=== PATIENT | male | born 1955 | race Caucasian/White ===

== ENCOUNTER 2020-02-16 01:34 | Inpatient (IN) | payer MEDICAID, OTHER ==
[~2020-02-16] VITALS: Ht 167.6 cm; Wt 98.9 kg
[2020-02-16] MEDS ORDERED: SODIUM CHLORIDE 0.9% 2,000 ML IV ONE (02:12)
[2020-02-16] MEDS ORDERED: MORPHINE SULFATE 4 MG/ML SYR/VIAL IV ONE (02:15)
[2020-02-16] MEDS ORDERED: ONDANSETRON HCL 4 MG/2 ML VIAL IV ONE (02:15)
[2020-02-16 02:42] LABS: Platelet Count (auto) 311 10^3/uL (140-450)
[2020-02-16 02:44] LABS: Hematocrit 52.4 % (41.0-53.0); Hemoglobin 17.6 g/dL (13.5-17.5); Mean Corpuscular Hemoglobin 30.6 pg (28.0-32.0); Mean Corpuscular Hgb Conc. 33.7 g/dL (32.0-36.0); Mean Corpuscular Volume 90.9 fL (80.0-100.0); Red Blood Cells 5.77 10^6/uL (4.5-5.90); Red Cell Distribution Width 13.5 % (11.8-14.3)
[2020-02-16 02:47] LABS: White Blood Cell 31.4 10^3/uL (4.4-10.8)
[2020-02-16 02:49] LABS: Basophils % (manual) 0 (0.0-2.0); Blast Cells 0; Eosinophils % (manual) 0 (0-7); Metamyelocytes % 0; Myelocytes % 0; Promyelocytes % 0; Reactive Lymphocytes 0
[2020-02-16 02:50] LABS: INR 1.07 (0.9-1.15); Partial Thromboplastin Time 25.2 sec (23.64-32.05)
[2020-02-16 03:02] LABS: Alanine Aminotransferase 68 U/L (16-61); Albumin 3.9 g/dL (3.4-5.0); Anion Gap 14 (5-15); Aspartate Aminotransferase 87 U/L (15-37); BUN/Creatinine Ratio 12.3; Blood Urea Nitrogen 16 mg/dL (7-18); Calcium 9.3 mg/dL (8.5-10.1); Carbon Dioxide 20 mmol/L (21-32); Chloride 102 mmol/L (98-107); GFR African American 71 mL/min; GFR Non-African American 59 mL/min; Glucose 211 mg/dL (74-106); Potassium 3.1 mmol/L (3.5-5.1); Sodium 136 mmol/L (136-145)
[2020-02-16 03:07] LABS: Alkaline Phosphatase 90 U/L (45-117); Bilirubin, Total 1.6 mg/dL (0.2-1.0); Total Protein 7.7 g/dL (6.4-8.2)
[2020-02-16 03:20] LABS: Band Neutrophils % (manual) 4; Lymphocytes % (manual) 8 (10.0-50.0); Monocytes % (manual) 6 (0-12)
[2020-02-16 03:30] LABS: Amylase 4122 U/L (25-115)
[2020-02-16] MEDS ORDERED: POTASSIUM CHL 20MEQ/100ML 100 ML IV ONE (04:00)
[2020-02-16] MEDS ORDERED: CEFTRIAXONE SODIUM 2 GM in D5W 5% 50 ML IV ONE (04:00)
[2020-02-16] MEDS ORDERED: SODIUM CHLORIDE 0.9% 1,000 ML IV ONE (04:00)
[2020-02-16] MEDS ORDERED: HYDROmorphone HCL 2 MG/ML VL IV ONE ×2 (04:00→13:45)
[2020-02-16] MEDS ORDERED: methylPREDNISolone SOD SUCC 125 MG/2 ML VL IV ONE (04:00)
[2020-02-16] MEDS ORDERED: diphenhdrAMINE HCL 50 MG/1 ML VL IV ONE (04:00)
[2020-02-16] MEDS ORDERED: cefTRIAXone 1GM/50ML D5W 100 ML IV ONE (04:26)
[2020-02-16 04:27] LABS: Lipase 114664 U/L (73-393)
[2020-02-16] MEDS ORDERED: HYDROmorphone HCL 2 MG/ML VL IV PRN (07:30)
[2020-02-16] MEDS ORDERED: ENOXAPARIN SOD 60 MG/0.6 ML SYRINGE SC ONE ×2 (09:00)
[2020-02-16 09:18] LABS: Urine Bacteria NONE SEEN /hpf (None Seen); Urine Blood TRACE /uL (Negative); Urine Specific Gravity 1.015 (1.001-1.035); Urine WBC 1 /hpf (0 - 3)
[2020-02-16] MEDS ORDERED: NITROGLYCERIN 0.4 MG SL TAB SL PRN (10:15)
[2020-02-16] MEDS ORDERED: levoFLOXacin 500MG 100 ML IV ONE (10:15)
[2020-02-16] MEDS: levoFLOXacin 500MG 100 ML IV SCH (10:35)
[2020-02-16] MEDS: SODIUM CHLORIDE 0.9% 1,000 ML IV SCH ×3 (10:45→23:52)
[2020-02-16] MEDS ORDERED: ENOXAPARIN SOD 100 MG/1 ML SYRINGE SC SCH (12:30)
[2020-02-16] MEDS: HYDROmorphone HCL 2 MG/ML VL IV PRN ×3 (12:48→21:04)
[2020-02-16] MEDS: PROMETHAZINE HCL 25 MG/ML 1ML IV PRN ×2 (13:27→17:30)
[2020-02-16] MEDS: metroNIDAZOLE 500MG/100ML 100 ML IV SCH ×2 (14:00→22:00)
[2020-02-16] MEDS: FAMOTIDINE (10MG/ML) 2ML VL IV SCH (22:00)
[2020-02-17] VITALS (16 sets, daily range): BP systolic 89–148; BP diastolic 52–95
[2020-02-17] MEDS: HYDROmorphone HCL 2 MG/ML VL IV PRN ×7 (00:03→22:48)
[2020-02-17] MEDS: MORPHINE SULF INJ 2 MG/ML SYRINGE 1ML IV PRN ×2 (02:57→06:20)
[2020-02-17 06:01] LABS: Hemoglobin 16.7 g/dL (13.5-17.5)
[2020-02-17] MEDS: SODIUM CHLORIDE 0.9% 1,000 ML IV SCH ×3 (06:10→13:30)
[2020-02-17] MEDS: metroNIDAZOLE 500MG/100ML 100 ML IV SCH ×3 (06:11→21:33)
[2020-02-17 06:13] LABS: Hematocrit 50.5 % (41.0-53.0); Mean Corpuscular Hemoglobin 30.5 pg (28.0-32.0); Mean Corpuscular Hgb Conc. 33.1 g/dL (32.0-36.0); Mean Corpuscular Volume 92.3 fL (80.0-100.0); Platelet Count (auto) 251 10^3/uL (140-450); Red Blood Cells 5.47 10^6/uL (4.5-5.90); Red Cell Distribution Width 13.7 % (11.8-14.3)
[2020-02-17 06:21] LABS: Potassium 5.2 mmol/L (3.5-5.1)
[2020-02-17 06:32] LABS: Albumin 3.4 g/dL (3.4-5.0); Bilirubin, Total 2.8 mg/dL (0.2-1.0); Total Protein 6.2 g/dL (6.4-8.2)
[2020-02-17 06:55] LABS: Basophils % (manual) 0 (0.0-2.0); Blast Cells 0; Eosinophils % (manual) 0 (0-7); Metamyelocytes % 0; Myelocytes % 0; Promyelocytes % 0; Reactive Lymphocytes 0
[2020-02-17 07:31] LABS: Band Neutrophils % (manual) 3; Lymphocytes % (manual) 2 (10.0-50.0); Monocytes % (manual) 6 (0-12)
[2020-02-17] MEDS ORDERED: LIDOCAINE 2%HCL (LOCAL ANESTH.) INJ 20ML MDV ONE (07:50)
[2020-02-17] MEDS ORDERED: IODIXANOL 320MG/ML 100ML BTL IV ONE ×2 (07:50→08:36)
[2020-02-17] MEDS ORDERED: HYDROmorphone HCL 2 MG/ML VL ONE (08:13)
[2020-02-17] MEDS ORDERED: SODIUM CHL 0.9% 50 ML ONE (08:14)
[2020-02-17] MEDS ORDERED: MIDAZOLAM HCL 1MG/1ML-2 ML VIAL ONE (08:14)
[2020-02-17] MEDS ORDERED: VERAPAMIL 2.5MG/ML INJ 2ML VIAL IV ONE (08:14)
[2020-02-17] MEDS ORDERED: ANGIOMAX 250 MG VIAL IV ONE (08:14)
[2020-02-17] MEDS ORDERED: NITROGLYCERIN 50MG/250ML 250 ML IV ONE (08:16)
[2020-02-17] MEDS ORDERED: ASPirin 325 MG TAB ONE (08:47)
[2020-02-17] MEDS ORDERED: CLOPIDOGREL 300 MG TAB ONE (08:47)
[2020-02-17] MEDS ORDERED: MORPHINE SULF INJ 2 MG/ML SYRINGE 1ML IV PRN (09:15)
[2020-02-17] MEDS ORDERED: NITROGLYCERIN 0.4 MG SL TAB SL PRN (09:15)
[2020-02-17] MEDS: ASPirin 81 mg TAB PO SCH (09:41)
[2020-02-17] MEDS: FAMOTIDINE (10MG/ML) 2ML VL IV SCH ×2 (09:52→21:33)
[2020-02-17] MEDS ORDERED: HYDROmorphone HCL 2 MG/ML VL IV PRN (13:15)
[2020-02-17] MEDS ORDERED: CARVEDILOL 3.125 MG TAB PO ONE (16:45)
[2020-02-17] MEDS ORDERED: METOPROLOL TARTRATE 1MG/1ML-5ML VIAL IV PRN (17:15)
[2020-02-17] MEDS: CARVEDILOL 3.125 MG TAB PO SCH (21:34)
[2020-02-17] MEDS: DOCUSATE SOD 100 MG CAP PO SCH (21:34)
[2020-02-17] MEDS ORDERED: ENOXAPARIN SOD 100 MG/1 ML SYRINGE SC SCH (22:00)
[2020-02-18] VITALS (9 sets, daily range): BP systolic 123–155; BP diastolic 80–94
[2020-02-18] MEDS: HYDROmorphone HCL 2 MG/ML VL IV PRN ×7 (01:54→23:06)
[2020-02-18] MEDS: SODIUM CHLORIDE 0.9% 1,000 ML IV SCH ×4 (02:10→22:29)
[2020-02-18 04:46] LABS: Hemoglobin 13.9 g/dL (13.5-17.5); Platelet Count (auto) 204 10^3/uL (140-450); Red Blood Cells 4.47 10^6/uL (4.5-5.90); Red Cell Distribution Width 14.2 % (11.8-14.3); White Blood Cell 25.9 10^3/uL (4.4-10.8)
[2020-02-18 05:09] LABS: Albumin 2.7 g/dL (3.4-5.0); Calcium 7.6 mg/dL (8.5-10.1); Magnesium 1.9 mg/dL (1.6-2.6); Potassium 4.9 mmol/L (3.5-5.1)
[2020-02-18 05:15] LABS: Basophils % (manual) 0 (0.0-2.0); Blast Cells 0; Eosinophils % (manual) 0 (0-7); Metamyelocytes % 0; Myelocytes % 0; Promyelocytes % 0; Reactive Lymphocytes 0
[2020-02-18 05:20] LABS: BUN/Creatinine Ratio 30.9; Bilirubin, Total 3.5 mg/dL (0.2-1.0); Total Protein 5.9 g/dL (6.4-8.2)
[2020-02-18 05:50] LABS: Band Neutrophils % (manual) 16; Lymphocytes % (manual) 6 (10.0-50.0); Monocytes % (manual) 9 (0-12)
[2020-02-18] MEDS: metroNIDAZOLE 500MG/100ML 100 ML IV SCH ×3 (06:00→22:28)
[2020-02-18] MEDS: DOCUSATE SOD 100 MG CAP PO SCH ×2 (10:00→22:28)
[2020-02-18] MEDS: ASPirin 81 mg TAB PO SCH (10:00)
[2020-02-18] MEDS: levoFLOXacin 500MG 100 ML IV SCH (10:06)
[2020-02-18] MEDS: FAMOTIDINE (10MG/ML) 2ML VL IV SCH ×2 (10:14→22:28)
[2020-02-18 12:21] LABS: Urine Amorphous Crystal MOD /hpf (None Seen); Urine Bacteria NONE SEEN /hpf (None Seen); Urine Blood 3+ /uL (Negative); Urine Hyaline Cast MANY /lpf (0 - 2); Urine Mucus MODERATE (None Seen); Urine Specific Gravity 1.033 (1.001-1.035); Urine WBC 51 /hpf (0 - 3)
[2020-02-18] MEDS: CARVEDILOL 3.125 MG TAB PO SCH ×2 (12:26→22:29)
[2020-02-18 12:30] LABS: Amphetamine Screen, Urine NEGATIVE (NEGATIVE); Barbiturate Scree,Urine NEGATIVE (NEGATIVE); Benzodiazephine Screen, Urine POSITIVE (NEGATIVE); Cannabinoid Screen, Urine NEGATIVE (NEGATIVE); Cocaine Screen, Urine NEGATIVE (NEGATIVE); Opiate Scree,Urine POSITIVE (NEGATIVE); Phencyclidine Screen, Urine NEGATIVE (NEGATIVE)
[2020-02-18] MEDS ORDERED: traMADol HCL 50 MG TAB PO PRN ×2 (17:45)
[2020-02-18] MEDS ORDERED: HYDROmorphone HCL 2 MG/ML VL IV ONE (17:45)
[2020-02-18] MEDS ORDERED: ASPI-123 PO (20:36)
[2020-02-18] MEDS ORDERED: TAMS0.4C36 PO (20:36)
[2020-02-18] MEDS ORDERED: SPIR50TA5 PO (20:36)
[2020-02-18] MEDS ORDERED: LISI10TA6 PO (20:36)
[2020-02-18] MEDS: PROMETHAZINE HCL 25 MG/ML 1ML IV PRN (22:43)
[2020-02-19] MEDS: HYDROmorphone HCL 2 MG/ML VL IV PRN ×7 (02:19→23:58)
[2020-02-19 04:30] VITALS: BP 144/80
[2020-02-19] MEDS: PROMETHAZINE HCL 25 MG/ML 1ML IV PRN (05:05)
[2020-02-19] MEDS: metroNIDAZOLE 500MG/100ML 100 ML IV SCH ×3 (05:22→22:35)
[2020-02-19] MEDS: SODIUM CHLORIDE 0.9% 1,000 ML IV SCH (05:24)
[2020-02-19 06:06] LABS: Basophils # (auto) 0 10 ^3/uL (0-0.2); Basophils % (auto) 0.1 % (0.0-2.0); Eosinophils # (auto) 0 10 ^3/uL (0-0.8); Hematocrit 37.4 % (41.0-53.0); Hemoglobin 12.5 g/dL (13.5-17.5); Lymphocytes # (auto) 0.6 10 ^3/uL (0.4-5.4); Lymphocytes % (auto) 3.9 % (10.0-50.0); Mean Corpuscular Hemoglobin 31.4 pg (28.0-32.0); Mean Corpuscular Hgb Conc. 33.5 g/dL (32.0-36.0); Mean Corpuscular Volume 93.9 fL (80.0-100.0); Monocytes % (auto) 6.5 % (0.0-12.0); Neutrophils # (auto) 14.4 10 ^3/uL (1.6-8.6); Neutrophils % (auto) 89.5 % (37.0-80.0); Nucleated Red Blood Cells % 0.1 %; Platelet Count (auto) 182 10^3/uL (140-450); Red Blood Cells 3.98 10^6/uL (4.5-5.90); Red Cell Distribution Width 14.2 % (11.8-14.3)
[2020-02-19 06:56] LABS: Albumin 2.7 g/dL (3.4-5.0); BUN/Creatinine Ratio 34.5; Bilirubin, Total 8.2 mg/dL (0.2-1.0); Calcium 8.1 mg/dL (8.5-10.1); Magnesium 2.3 mg/dL (1.6-2.6); Total Protein 5.9 g/dL (6.4-8.2)
[2020-02-19] MEDS: ASPirin 81 mg TAB PO SCH (08:51)
[2020-02-19] MEDS: FAMOTIDINE (10MG/ML) 2ML VL IV SCH ×2 (08:51→22:33)
[2020-02-19] MEDS: DOCUSATE SOD 100 MG CAP PO SCH ×2 (08:51→22:33)
[2020-02-19] MEDS: levoFLOXacin 500MG 100 ML IV SCH (08:51)
[2020-02-19] MEDS: CARVEDILOL 3.125 MG TAB PO SCH ×2 (08:52→22:35)
[2020-02-19 09:00] VITALS: BP 140/78
[2020-02-19] MEDS ORDERED: SODIUM CHLORIDE 0.9% 1,000 ML IV SCH (10:45)
[2020-02-19 13:00] VITALS: BP 152/77
[2020-02-19 17:00] VITALS: BP 157/82
[2020-02-19] MEDS ORDERED: D5W/SOD CHLO 0.9% 1,000 ML IV SCH (17:30)
[2020-02-19] MEDS ORDERED: TPN PER PHARMACY 0 ML IV SCH (18:00)
[2020-02-19 22:59] VITALS: BP 138/70
== END 2020-02-20 05:45 | disposition left against medical advice (07) | DRG 951 ==
LOC: ER 01:36 → TELE 10:10 → ICU WEST 02-17 09:22 → TELE-CENTR 02-18 12:23
PROVIDERS: ADMIT Internal Medicine; ATTEND Hospitalist
PROC: B2111ZZ Fluoroscopy of Multiple Coronary Arteries using Low Osmolar Contrast (ICD-10-PCS; principal; 2020-02-16)
PROC: 02713ZZ Dilation of Coronary Artery, Two Arteries, Percutaneous Approach (ICD-10-PCS; 2020-02-16)
DX: K85.91 Acute pancreatitis with uninfected necrosis, unspecified (principal); I21.4 Non-ST elevation (NSTEMI) myocardial infarction; E27.8 Other specified disorders of adrenal gland; M62.82 Rhabdomyolysis; K80.00 Calculus of gallbladder with acute cholecystitis without obstruction; E66.01 Morbid (severe) obesity due to excess calories; I48.0 Paroxysmal atrial fibrillation; D72.823 Leukemoid reaction; K57.90 Diverticulosis of intestine, part unspecified, without perforation or abscess without bleeding; E87.6 Hypokalemia; K44.9 Diaphragmatic hernia without obstruction or gangrene; R73.9 Hyperglycemia, unspecified; F10.20 Alcohol dependence, uncomplicated; K57.30 Diverticulosis of large intestine without perforation or abscess without bleeding; K76.0 Fatty (change of) liver, not elsewhere classified; M51.36 Other intervertebral disc degeneration, lumbar region; F41.8 Other specified anxiety disorders; I11.9 Hypertensive heart disease without heart failure; N40.0 Benign prostatic hyperplasia without lower urinary tract symptoms; K82.8 Other specified diseases of gallbladder; Z88.0 Allergy status to penicillin; Z90.49 Acquired absence of other specified parts of digestive tract; Z68.35 Body mass index [BMI] 35.0-35.9, adult; Y90.9 Presence of alcohol in blood, level not specified
CPT/HCPCS: 36415; 71045; 74176; 74181; 76705; 80053; 80307; 81001; 82150; 82550; 83690; 83735; 83880; 84132; 84484; 85007; 85025; 85027; 85610; 85652; 85730; 87040; 87081; 87086; 93005; 93306; 96361; 96365; 96372; 96375; 99152; 99153; G0378; J0696; J1956; J2250; J2405; J3480; J3490; J7042; J7060; Q9967